=== PATIENT | female | born 1960 | race Caucasian/White ===

== ENCOUNTER → 2016-10-05 07:03 | Outpatient (CLI) | payer MEDICARE, MEDICAID ==
[~2016-10-05 07:03] MED LIST: BAYER CHEWABLE81 MG PO; BENTYL 20 MG TA20 MG PO; BENTYL10 MG PO; CARAFATE1 G PO; CELEBREX200 MG PO; COMBIVENT RESPIM4 GM INH; CYMBALTA60 MG PO; ESTRACE2 MG; ESTRACE2 MG PO; IPRAT-ALBUT 0.5-3 ML UPD; K-DUR20 MEQ PO; KETOPROFEN50 MG PO; KLOR-CON 1010 MEQ PO; LASIX40 MG; LASIX40 MG PO; LORATADINE PO; LUMIGAN 0.03 %2.5 ML EACH EYE; LYRICA150 MG PO; MAXALT MLT10 MG/TAB PO; MORPHINE SULFAT15 M3 PO; NAPROSYN500 MG PO; NEURONTIN800 MG PO; NORVASC10 MG PO; PERCOCET 10/3251 TA1 PO; PHENERGAN25 M1 PO; PRILOSEC20 MG PO; REQUIP4 MG PO; SPIRIVA18 MCG INH; VALIUM10 MG PO; VITAMIN B-12500 MCG PO; VOLTAREN100 GM; VOLTAREN100 GM TOPICAL; ZANAFLEX4 MG PO; ZESTORETIC 20/21 TAB PO; ZOVIRAX 5% CREAM5 GM TP
== END | disposition home or self-care (01) ==
LOC: D.RT 07:03
DX: J44.9 Chronic obstructive pulmonary disease, unspecified (principal)

== ENCOUNTER → 2016-10-21 18:42 | Outpatient (CLI) | payer MEDICARE, MEDICAID | END | disposition home or self-care (01) | LOC: D.MAMMO 08:45 | DX: Z12.31 Encounter for screening mammogram for malignant neoplasm of breast (principal) ==

== ENCOUNTER 2017-05-17 08:58 | Day surgery (SDC) | payer MEDICARE, MEDICAID ==
--- NOTE | 2017-05-17 13:38 | NUR ---
1215-DR COLE HERE TO EVALUATE PATIENT 1230-CONSENT SIGNED 1232-TIMEOUT 1234-PROCEDURE START 1239-PROCEDURE END 1300-DISCHARGED AMBULATORY PER REQUEST
== END 2017-05-17 13:00 | disposition home or self-care (01) ==
LOC: D.OPS 08:58
DX: L90.5 Scar conditions and fibrosis of skin (principal); R10.30 Lower abdominal pain, unspecified

== ENCOUNTER → 2017-05-31 10:24 | Outpatient (CLI) | payer MEDICARE, MEDICAID ==
[2017-05-31 13:14] VITALS: BMI 27.0
--- NOTE | 2017-05-31 14:07 | NUR ---
1355-DISCHARGE INSTRUCTIONS REVIEWED. 1400-D/C HOME AMBULATORY.
== END | disposition home or self-care (01) ==
LOC: D.OPS 10:24
DX: G97.82 Other postprocedural complications and disorders of nervous system (principal); G62.89 Other specified polyneuropathies; Z01.812 Encounter for preprocedural laboratory examination

== ENCOUNTER 2017-06-14 12:34 | Day surgery (SDC) | payer MEDICARE, MEDICAID ==
[~2017-06-14] VITALS: Ht 165.1 cm; Wt 72.7 kg
[2017-06-14 13:04] VITALS: Ht 165.1 cm; Wt 72.7 kg
--- NOTE | 2017-06-14 14:18 | NUR ---
1344 BP 170/90 77 18 98% SAT. TOLERATED PROCEDURE . 1400 PAIN REPORTED 4/10. UP AND AMB WITHOUT ASSISSTANCE. DR. MAZA OFFICE WILL CONTACT PT WITH APPT. PT INFORMED.
--- NOTE | 2017-06-14 14:22 | NUR ---
1412 DC INSTS REVIEWED RELEASED AMB.
== END 2017-06-14 14:17 | disposition home or self-care (01) ==
LOC: D.OPS 12:34
DX: G89.18 Other acute postprocedural pain (principal)

== ENCOUNTER 2017-11-28 20:21 | Emergency (ER) | payer MEDICARE, MEDICAID ==
[2017-06-14 13:04] VITALS: BMI 26.6
[2017-11-28 21:41] LABS: BASOPHILS 0.1 % (0-2); EOSINOPHILS 0.2 % (0-7); HEMATOCRIT 36.9 % (36.0-48.0); IMMATURE GRANULOCYTES 0.1 % (0-5); LYMPHOCYTES 13.7 % (15-50); MCH 27.6 pg (26.0-34.0); MCHC 32.5 g/dL (31.0-37.0); MONOCYTES 9.8 % (2-11); NEUTROPHILS 76.1 % (40-80); RBC 4.34 10x6/uL (4.00-5.40); RDW 12.5 % (11.5-14.5); WBC 8.9 10x3/uL (4.8-10.8)
[2017-11-28 22:01] LABS: ALBUMIN 3.5 g/dL (3.4-5.0); ALKALINE PHOSPHATASE 66 U/L (46-116); ALT (SGPT) 21 U/L (10-68); CALC OSMOLALITY 274 mosm/kg (275-300); CARBON DIOXIDE 24.7 mmol/L (21.0-32.0); CHLORIDE - SERUM 100 mmol/L (98-107); CREATININE - SERUM 1.5 mg/dL (0.6-1.3); GLUCOSE 134 mg/dL (74-106); PROTEIN - SERUM 7.6 g/dL (6.4-8.2); SODIUM 137 mmol/L (136-145); UREA NITROGEN 11 mg/dL (7-18); eGFR NON AFRICAN AMERICAN 38 mL/min (90-120)
[2017-11-28 22:06] LABS: PLATELET COUNT 198 10x3/uL (130-400)
[2017-11-28 22:15] LABS: CKMB 0.7 U/L (0.0-3.6); CREATINE KINASE 94 UL (21-215); TROPONIN-I < 0.017 ng/mL (0.000-0.060)
[2017-11-28 23:52] LABS: APTT 30.1 SECONDS (22.8-39.4)
[2017-11-28 23:56] LABS: INR 0.93 (0.85-1.17); PROTIME 12.1 SECONDS (11.6-15.0)
[2017-11-29 00:12] LABS: APPEARANCE CLEAR (CLEAR); BILIRUBIN NEGATIVE (NEGATIVE); COLOR YELLOW (YELLOW); GLUCOSE NEGATIVE (NEGATIVE); KETONE NEGATIVE (NEGATIVE); NITRITE NEGATIVE (NEGATIVE); PROTEIN NEGATIVE (NEGATIVE); UROBILINOGEN NORMAL (NORMAL)
[2017-11-29 00:13] LABS: BACTERIA MODERATE /hpf (NONE SEEN); EPITHELIAL CELLS 0-5 /hpf (0-5); HYALINE CAST 0-5 /lpf (NONE SEEN); MUCUS >1+ /lpf (NONE SEEN); RED CELLS - URINE 0-5 /hpf (0-5); WHITE CELLS - URINE 0-5 /hpf (0-5)
[2017-11-29 00:16] LABS: UDS - AMPHET NEGATIVE QUAL (NEGATIVE); UDS - BARB NEGATIVE QUAL (NEGATIVE); UDS - BENZO NEGATIVE QUAL (NEGATIVE); UDS - COCAINE NEGATIVE QUAL (NEGATIVE); UDS - OPIATE NEGATIVE QUAL (NEGATIVE); UDS - PCP NEGATIVE QUAL (NEGATIVE); UDS - THC NEGATIVE QUAL (NEGATIVE)
== END 2017-11-29 01:32 | disposition other institution (70) ==
LOC: D.ER 20:21
PROVIDERS: Family Medicine
DX: I63.9 Cerebral infarction, unspecified (principal); R07.89 Other chest pain; J44.9 Chronic obstructive pulmonary disease, unspecified; F17.200 Nicotine dependence, unspecified, uncomplicated

== ENCOUNTER → 2017-12-30 16:41 | Outpatient (CLI) | payer MEDICARE, MEDICAID ==
[2017-06-14 13:04] VITALS: BMI 26.6
[~2017-12-30 16:41] MED LIST changes: +CLEOCIN HCL300 MG PO; +FLUTICASONE PRO16 GM NASAL
== END | disposition home or self-care (01) ==
LOC: D.MAMMO 10:15
DX: Z12.31 Encounter for screening mammogram for malignant neoplasm of breast (principal)

== ENCOUNTER → 2018-01-10 10:25 | Outpatient (CLI) | payer MEDICARE, MEDICAID ==
[2017-06-14 13:04] VITALS: BMI 26.6
== END | disposition home or self-care (01) ==
LOC: D.RT 12-01 09:00
DX: J44.9 Chronic obstructive pulmonary disease, unspecified (principal)

== ENCOUNTER 2018-01-31 13:03 | Emergency (ER) | payer MEDICARE, MEDICAID ==
[~2018-01-31] VITALS: Ht 165.1 cm; Wt 75.5 kg
[~2018-01-31 13:03] MED LIST changes: -CLEOCIN HCL300 MG PO; -FLUTICASONE PRO16 GM NASAL
[2018-01-31 13:14] VITALS: Ht 165.1 cm; Wt 75.5 kg
[2018-01-31 14:02] LABS: BASOPHILS 0.2 % (0-2); EOSINOPHILS 0.5 % (0-7); HEMATOCRIT 39.8 % (36.0-48.0); HEMOGLOBIN 13.2 g/dL (12-16); IMMATURE GRANULOCYTES 0.2 % (0-5); LYMPHOCYTES 16.8 % (15-50); MCHC 33.2 g/dL (31.0-37.0); MCV 84.3 fL (80.0-100.0); MEAN PLATELET VOLUME 9.5 fL (7.4-10.4); NEUTROPHILS 70.3 % (40-80); PLATELET COUNT 166 10x3/uL (130-400); RBC 4.72 10x6/uL (4.00-5.40); RDW 12.7 % (11.5-14.5)
[2018-01-31 14:10] LABS: APTT 27.3 SECONDS (22.8-39.4); INR 1.01 (0.85-1.17); PROTIME 12.9 SECONDS (11.6-15.0)
[2018-01-31 14:38] LABS: ALBUMIN 3.4 g/dL (3.4-5.0); ALKALINE PHOSPHATASE 85 U/L (46-116); ALT (SGPT) 38 U/L (10-68); BILIRUBIN - TOTAL 0.67 mg/dL (0.2-1.3); CALC OSMOLALITY 273 mosm/kg (275-300); CARBON DIOXIDE 27.5 mmol/L (21.0-32.0); CHLORIDE - SERUM 102 mmol/L (98-107); CREATININE - SERUM 0.7 mg/dL (0.6-1.3); GLUCOSE 106 mg/dL (74-106); POTASSIUM - SERUM 3.7 mmol/L (3.5-5.1); PROTEIN - SERUM 7.6 g/dL (6.4-8.2); SODIUM 138 mmol/L (136-145); UREA NITROGEN 8 mg/dL (7-18); eGFR NON AFRICAN AMERICAN > 90 mL/min (90-120)
[2018-01-31 14:43] LABS: CKMB 0.3 U/L (0.0-3.6); CREATINE KINASE 68 UL (21-215); PRO BNP 340 pg/mL (0-125)
[2018-01-31 14:53] LABS: TROPONIN-I < 0.017 ng/mL (0.000-0.060)
[2018-01-31] MEDS ORDERED: FLUTICASONE PRO16 GM NASAL (16:20)
[2018-01-31] MEDS ORDERED: CLEOCIN HCL300 MG PO (16:20)
[2018-01-31 17:05] VITALS: BP 150/80
== END 2018-01-31 17:09 | disposition other institution (70) ==
LOC: D.ER 13:03
PROVIDERS: Family Medicine
DX: J01.90 Acute sinusitis, unspecified (principal); R05 Cough; M54.5 Low back pain; J44.9 Chronic obstructive pulmonary disease, unspecified; J45.909 Unspecified asthma, uncomplicated

== ENCOUNTER → 2018-11-02 09:12 | Outpatient (CLI) | payer MEDICARE, MEDICAID ==
[2018-01-31 13:14] VITALS: BMI 27.6
[~2018-11-02 09:12] MED LIST changes: +CLEOCIN HCL300 MG PO; +FLUTICASONE PRO16 GM NASAL
== END | disposition home or self-care (01) ==
LOC: D.RAD 09:12
PROVIDERS: ATTEND Internal Medicine Pulmonary Disease
DX: J44.9 Chronic obstructive pulmonary disease, unspecified (principal)

== ENCOUNTER → 2019-02-14 07:26 | Outpatient (CLI) | payer MEDICARE, MEDICAID ==
[2018-01-31 13:14] VITALS: BMI 27.6
[2019-02-14 10:36] LABS: BASOPHILS 0.2 % (0-2); EOSINOPHILS 1.4 % (0-7); HEMATOCRIT 38.4 % (36.0-48.0); HEMOGLOBIN 12.8 g/dL (12-16); IMMATURE GRANULOCYTES 0.1 % (0-5); LYMPHOCYTES 37.5 % (15-50); MCH 27.9 pg (26.0-34.0); MCHC 33.3 g/dL (31.0-37.0); MCV 83.8 fL (80.0-100.0); MEAN PLATELET VOLUME 8.9 fL (7.4-10.4); MONOCYTES 10.6 % (2-11); NEUTROPHILS 50.2 % (40-80); RBC 4.58 10x6/uL (4.00-5.40); RDW 13.4 % (11.5-14.5); WBC 8.1 10x3/uL (4.8-10.8)
[2019-02-14 10:43] LABS: PLATELET COUNT 241 10x3/uL (130-400)
[2019-02-14 10:56] LABS: T4 THYROXINE 11.8 ug/dL (4.7-13.3); THYROID STIMULATING HORMONE 1.17 uIU/mL (0.36-3.74)
[2019-02-18 03:06] LABS: IMMUNOGLOBULIN E 15 IU/mL (6-495)
== END | disposition home or self-care (01) ==
LOC: D.RT 10-16 14:00 → D.LAB 11-15 10:00 → D.RT 11-15 10:00 → D.CT 11-15 10:00 → D.LAB 11-15 11:00 → D.CT 11-15 11:10 → D.RT 07:26
PROVIDERS: ATTEND Internal Medicine Pulmonary Disease
DX: R06.00 Dyspnea, unspecified (principal)

== ENCOUNTER 2019-03-01 09:00 | Outpatient (CLI) | payer MEDICARE, MEDICAID ==
[2018-01-31 13:14] VITALS: BMI 27.6
== END 2019-03-01 10:00 | disposition home or self-care (01) ==
LOC: D.MAMMO 09:00
PROVIDERS: ATTEND Family Medicine
DX: Z12.31 Encounter for screening mammogram for malignant neoplasm of breast (principal)

== ENCOUNTER 2019-03-06 10:48 | Outpatient (CLI) | payer MEDICARE, MEDICAID ==
[~2019-03-06] VITALS: Ht 165.1 cm; Wt 72.7 kg
--- NOTE | ~2019-03-06 | HEMODYNAMI ---
PATIENT:GILBERTO BARRERA MEDICAL RECORD: [id number] : 58 LOCATION:[facility] ADMISSION DATE: 03/06/19 Generatedon:03/06/201913:26 Patient name: GILBERTO BARRERA Patient #: [id number] : 1960 Date of study: 03/06/2019 Page: Of Hemodynamic Procedure Report Patient Data Patient Demographics Procedure consent was obtained First Name: GILBERTO Gender: Female Last Name: HOLLY : 1960 Middle Initial: Yahaira Age: 58 year(s) Patient #: [id number] Race: SSN: [id number] Additional ID: [id number] Contact details [address]: [address] [place] [address] State: [place] City: [place] Zip code: [address] Admission Admission Data Admission Date: 03/06/2019 Admission Time: 10:48 Arrival Date: 03/06/2019 Arrival Time: 13:00 Admit Source: Other Insurance Payor: Medicare, Medicaid Height (in.): 64.96 BSA: 1.8 (m2) Height (cm.): 165 BMI: 26.81 (kg/m2) Weight (lbs.): 160.94 Weight (kg.): 73 Lab Results Lab Result Date: 03/06/2019 Lab Result Time: 0:00 Biochemistry Name Units Result Min Max BUN mg/dl 9 --(*---)-- 7 18 Creatinine mg/dl 0.8 --(-*--)-- 0.6 1.3 CBC Name Units Result Min Max Hemoglobin g/dl 12.9 -*(----)-- 13.5 17.5 Procedure Procedure Types Cath Procedure Diagnostic Procedure [facility] w/Coronaries Sedation Charges Moderate Sedation up to 15 minutes Procedure Description Procedure Date Procedure Date: 03/06/2019 Procedure Start Time: 13:08 Procedure End Time: 13:23 Procedure Staff Name Function Antonio La MD Performing Physician Maryan Odonnell RT Monitor Antonia Whiting RT Scrub Dung Szymanski RT Scrub Curtis Naqvi RN Nurse Procedure Data Cath Procedure Fluoroscopy Diagnostic fluoroscopy Total fluoroscopy Time: 2.9 time: 2.9 min min Diagnostic fluoroscopy Total fluoroscopy dose: 417 dose: 417 mGy mGy Contrast Material Contrast Material Type Amount (ml) Isovue 300 91 Entry Location Entry Primary Successful Side Size Upsize Upsize Entry Closure Paredes ccessful Closure Location (Fr) 1 (Fr) 2 (Fr) Remarks Device Remarks Radial Right 6 Fr Mechanical artery Short Compression Estimated blood loss: 5 ml Diagnostic catheters Device Type Used For End Catheter Placement DIAGNOSTIC [place] 110cm 5 Multi-vessel Fr catheter ([id number]) Angiography DIAGNOSTIC AR MOD 5Fr Right Coronary Catheter ([id number]) Angiography Procedure Complications No complications Procedure Medications Medication Administration Route Dosage Oxygen etCO2 Nasal cannula 2 l/min Heparin Flush Bag added to field 2 bags (1000units/500ml NS) 0.9% NaCl I.V. 100 ml/hr Lidocaine 2% added to field 20 Radial Cocktail added to field 1 syringe (Verapamil 2mg/Nitro 400mcg/Heparin 1500units) Fentanyl I.V. 50 mcg Versed I.V. 1 mg Fentanyl I.V. 50 mcg Versed I.V. 1 mg Radial Cocktail I.A. 1 syringe (Verapamil 2mg/Nitro 400mcg/Heparin 1500units) Hemodynamics Rest BSA: 1.8 (m2) HGB: 12.9 (g/dl) O2 Consumption: Estimated: 173.28 (ml/min) O2 Con sumption indexed: Estimated:96.27 (ml/min/m) Heart Rate: 73 (bpm) Pressure Samples Time Site Value (mmHg) Purpose Heart Use Rate(bpm) 13:12 LV 150/10,11 Snapshot 73 13:12 LV 102/20,4 Snapshot 98 13:12 AO 160/106(121) Pullback 77 Gradients Valve Time Site Site 2 Mean SEP/DFP Peak To Heart Use 1 (mmHg) (sec/min) Peak Rate (mmHg) (bpm) Aortic 13:12 LV AO 77 160/106(121) Snapshots Pre Cath Intra NCS Post Cath Vital Signs Time Heart Resp SPO2 etCO2 NIBP (mmHg) Rhythm Pain Sedation Rate (ipm) (%) (mmHg) Status Level (bpm) 12:54:23 71 17 100 19.4 166/88(120) NSR 0 (11) 10(A) , No pain 12:58:23 54 16 100 33.7 168/97(117) NSR 0 (11) 10(A) , No pain 13:02:24 54 17 100 0 162/94(111) NSR 0 (11) 10(A) , No pain 13:06:32 54 17 94 0 127/82(99) NSR 0 (11) 10(A) , No pain 13:11:11 64 16 94 29.2 152/85(130) NSR 0 (11) 9(A) , No pain 13:15:13 72 16 97 32.9 112/80(102) NSR 0 (11) 9(A) , No pain 13:19:08 75 16 96 26.9 120/84(109) NSR 0 (11) 9(A) , No pain 13:22:04 69 17 97 36.7 128/74(94) NSR 0 (11) 9(A) , No pain Medications Time Medication Route Dose Verified Delivered Reason Notes Effectiveness by by 12:54:48 Oxygen etCO2 2 l/min Antonio Acevedo Per Nasal St Rudy Naqvi RN physician cannula 12:54:56 Heparin Flush added 2 bags Antonio Acevedo used for Bag to St Rudy Naqvi RN procedure (1000units/500ml field GERMAN NS) 12:55:16 0.9% NaCl I.V. 100 Antonio Acevedo Per ml/hr St Rudy Naqvi RN physician 12:55:26 Lidocaine 2% added 20ml Antonio Acevedo for local to vial St Rudy Naqvi RN anesthetic field GERMAN 12:55:37 Radial Cocktail added 1 Antonio Acevedo used for (Verapamil to syringe St Rudy Naqvi air brush artist 2mg/Nitro field GERMAN 400mcg/Heparin 1500units) 13:01:45 Fentanyl I.V. 50 mcg Antonio Acevedo for sedation St Rudy Naqvi RN, MD 13:01:51 Versed I.V. 1 mg Antonio Acevedo for sedation St Rudy Naqvi RN, MD 13:06:56 Fentanyl I.V. 50 mcg Antonio Acevedo for sedation St Rudy Naqvi RN, MD 13:06:58 Versed I.V. 1 mg Antonio Acevedo for sedation St Rudy Naqvi RN, MD 13:10:30 Radial Cocktail I.A. 1 Antonio rocha (Verapamil syringe Abhinav Abhinav vasodilation 2mg/Nitro MD GERMAN 400mcg/Heparin 1500units) Procedure Log Time Note 12:41:12 Diagnostic Cath Status : Elective 12:42:09 ACC Patient presents with Non-STEMI CCS Anginal Class 3--Marked limitation of physical activity, angina occurs with ordinary activity.. 12:42:17 ACCPatient has been prescribed/administered the following anti-anginal medication within the last 2 weeks: None 12:42:22 Procedure Status Elective Heart Cath (OP). 12:42:25 Curtis Naqvi RN sent for patient. Start room use. 12:42:26 Time tracking: Regular hours (M-F 7:00 - 5:00) 12:42:31 Plan of Care:Hemodynamics will remain stable., Cardiac rhythm will remain stable., Comfort level will be maintained., Respiratory function will remain adequate., Patient/ family verbilizes understanding of procedure., Procedure tolerated without complication., Recovers from procedure without complications.. 12:43:46 Informed consent obtained and on chart 12:45:58 Patient Height : 64.96 inches 12:46:04 Patient Weight : 160.94 lbs 12:46:20 Arrival Date: 03/06/2019 1:00:00 PM 12:46:26 Insurance Payor : Medicare, Medicaid 12:46:54 Admit Source: Other 12:47:36 Lab Result : Creatinine 0.8 mg/dl 12:47:36 Lab Result : BUN 9 mg/dl 12:47:36 Lab Result : Hemoglobin 12.9 g/dl 12:47:51 2) 60-89 Mildly reduced kidney function, and other findings (as for stage 1) point to kidney disease. 12:48:15 Maximum allowable contrast dose (3.7 X eGFR X 0.75)216 ml. 12:48:33 Patient received from Pre/Post Procedure Room to [facility] 2 Alert and oriented. Tansferred to table in Supine position. 12:53:30 ECG and BP/O2 sat monitors applied to patient. 12:53:34 Vital chart was started 12:54:48 Oxygen 2 l/min etCO2 Nasal cannula was administered by Curtis Naqvi RN; Per physician; 12:54:56 Heparin Flush Bag (1000units/500ml NS) 2 bags added to field was administered by Curtis Naqvi RN; used for procedure; 12:55:16 0.9% NaCl 100 ml/hr I.V. was administered by Curtis Naqvi RN; Per physician; 12:55:26 Lidocaine 2% 20ml vial added to field was administered by Curtis Naqvi RN; for local anesthetic; 12:55:37 Radial Cocktail (Verapamil 2mg/Nitro 400mcg/Heparin 1500units) 1 syringe added to field was administered by Curtis Naqvi RN; used for procedure; 12:55:42 Warm blankets applied, and brian hugger turned on for patient comfort. 12:55:42 Correct patient and procedure confirmed by team. 12:56:11 Rhythm: sinus bradycardia 12:56:12 Full Disclosure recording started 12:56:27 H&P Date Dictated: 02/20/2019 Within 30 days and on chart., H&P Addendum completed by physician on day of procedure. (MUST COMPLETE FOR ALL OUTPATIENTS). 12:56:28 Pre-procedure instructions explained to patient. 12:56:28 Pre-op teaching completed and patient verbalized understanding. 12:56:31 Family in patients room. 12:56:32 Patient NPO since Midnight. 12:56:34 Is the patient allergic to Iodine/contrast media? No. 12:56:36 Is patient on blood thinner?No 12:56:52 ACC The patient was administered the following blood thiners within the last 24 hours: None 12:56:53 Patient diabetic? No. 12:57:06 Previous problem with sedation/anesthesia? No ? 12:57:08 Snore? Yes 12:57:09 Sleep apnea? No 12:57:10 Deviated septum? No 12:57:11 Opens mouth fully? Yes 12:57:11 Sticks out tongue? Yes 12:57:24 Airway obstruction? Yes COPD, Asthma 12:57:30 Dentures? No ? 12:57:35 Pre procedure: right dorsailis pedis pulse 1+ Palpable, but thready & weak; easily obliterated 12:57:37 Modified Ubaldo's test Ulnar < 7 seconds 12:57:39 Patient pain scale 0/10 ?. 12:57:44 IV patent on arrival in left forearm with 0.9% NaCl at [facility]. 12:57:46 Lab results completed and on chart. 12:57:51 Right Radial & Right Groin area was prepped with chlora-prep and draped in sterile fashion 12:57:53 Alarms reviewed by R. N. 12:57:53 Sharps counted by scrub and verified by R.N. 12:58:48 --------ALL STOP TIME OUT------ 12:58:48 Final Timeout: patient, procedure, and site verified with staff and physician. All members of the team are in agreement. 12:58:50 Right Radial & Right Groin site verified by team. 12:58:53 Fire Safety Assessment: A--An alcohol-based skin anteseptic being used preoperatively., C--Open oxygen or nitrous oxide is being used., D--An ESU, laser, or fiber-optic light is being used. 12:59:01 Physical assessment completed. ASA score P 2 - A patient with mild systemic disease as per Antonio La MD. 12:59:05 Sedation plan: IV Moderate Sedation Medication:Versed, Fentanyl 13:01:45 Fentanyl 50 mcg I.V. was administered by Curtis Naqvi RN; for sedation; 13:01:51 Versed 1 mg I.V. was administered by Curtis Naqvi RN; for sedation; 13:06:56 Fentanyl 50 mcg I.V. was administered by Curtis Naqvi RN; for sedation; 13:06:58 Versed 1 mg I.V. was administered by Curtis Naqvi RN; for sedation; 13:08:31 Procedure started. 13:08:33 Use device set Radial Dx or PCI 13:08:34 ACIST Syringe (75368) opened to sterile field. 13:08:34 Medline Cath Pack ([id number]) opened to sterile field. 13:08:35 Bag Decanter () opened to sterile field. 13:08:35 ACIST Hand Control (53762) opened to sterile field. 13:08:36 ACIST Manifold (28610) opened to sterile field. 13:08:36 Tegaderm 4 x 4 (1626W) opened to sterile field. 13:08:37 MBrace Wrist Support ([id number]) opened to sterile field. 13:08:38 SHEATH 6FR RAIN (6184343) opened to sterile field. 13:08:38 EMERALD Guide Wire (379-740) opened to sterile field. 13:08:45 Local anesthetic to right radial artery with Lidocaine 2% by Antonio La MD.INITIAL ACCESS ONLY 13:10:30 Radial Cocktail (Verapamil 2mg/Nitro 400mcg/Heparin 1500units) 1 syringe I.A. was administered by Antonio La MD; for vasodilation; 13:10:38 A 6 Fr Short sheath was inserted into the Right Radial artery 13:11:54 A DIAGNOSTIC [place] 110cm 5 Fr catheter (205702) was advanced over the wire and used for Multi-vessel Angiography. 13:12:21 LV hemodynamics recorded. 13:12:22 LV gram done using HENSON 13:12:25 Injector settings: Ml/sec: 5, Volume: 15, 13:12:43 EF : 55 % 13:14:06 LCA angiography performed. 13:14:12 Injector settings: Ml/sec: 3, Volume: 6, 13:15:32 Catheter removed. 13:15:50 A DIAGNOSTIC AR MOD 5Fr Catheter ([id number]) was advanced over the wire and used for Right Coronary Angiography. 13:16:09 Catheter removed. 13:17:38 RCA angiography performed. 13:17:41 Injector settings: Ml/sec: 3, Volume: 6, 13:17:46 Catheter removed. 13:17:57 TR BAND Standard ([id number]) opened to sterile field. 13:19:26 Sheath removed intact; hemostasis achieved with Mechanical Compression to the Right Radial artery. 13:19:27 Procedure ended.(Physican Out) 13:19:40 Fluoroscopy time 02.90 minutes. 13:19:43 Fluoroscopy dose: 417 mGy 13:19:43 Flurop Dose total: 417 13:20:14 Dose Area Product 13357 mGy/cm. 13:20:44 Contrast amount:Isovue 300 91ml. 13:20:47 Sharps counted by scrub and verified by R.N. 13:20:49 Insertion/operative site no bleeding no hematoma. 13:20:55 Post right radial artery:stable 13:20:56 Post Procedure Pulses reassessed and unchanged 13:20:59 Post procedure rhythm: unchanged. 13:21:02 Estimated blood loss: 5 ml 13:21:05 Post procedure instruction explained to patient.Patient verbalizes understanding. 13:21:05 Patient needs reinforcement of post procedure teaching. 13:21:21 Procedure type changed to Cath procedure, Diagnostic procedure, LHC, LHC w/Coronaries, Sedation Charges, Moderate Sedation up to 15 minutes 13:21:23 Procedure and supply charges have been captured, reviewed, submitted and are correct. 13:21:29 Procedure Complication : No complications 13:21:31 Vital chart was stopped 13:21:32 See physician's report for complete and final results. 13:22:57 Report given to Pre/Post Procedure Room. 13:23:00 Patient transfered to Pre/Post Procedure Room with Stretcher. 13:23:02 Procedure ended. 13:23:02 Full Disclosure recording stopped 13:23:06 End room use (Document Last) Device Usage Item Name Manufacture Quantity Catalog Hospital Part Current Minima l Lot# / Number Charge Number Stock Stock Serial# Code ACIST Acist 1 29671 009923 117709 502761 20 Syringe Medical (83934) Systems Inc Medline Medline 1 [id number] 048840 31162 825488 5 Cath Pack ([id number]) Bag Microtek 1 2001S 119369 81896 891226 5 Decanter Medical Inc. () ACIST Hand Acist 1 59258 420240 353878 622435 5 Control Medical (46138) Systems Inc ACIST Acist 1 22701 460502 907690 235853 5 Manifold Medical (33162) Systems Inc Tegaderm 4 3M 1 1626W 204322 122749 579258 5 x 4 (1626W) MBrace Advanced 1 140-0250-00 666323 27705 787177 5 Wrist Vascular Support Dynamics ([id number]) SHEATH 6FR Cardinal 1 3888040 810182 7102216 743509 5 [facility] (4679019) EMERALD Cardinal 1 502-455 556766 312771 488306 5 Guide Wire Health (502455) DIAGNOSTIC Terumo 1 40-0293 789682 955361 360315 5 [place] 110cm 5 Fr catheter (401549) DIAGNOSTIC Cardinal 1 [id number] 722227 674905 794434 15 AR MOD 5Fr Health Catheter (685464F) TR BAND Terumo 1 [id number] 802734 355345 885200 40 Standard ([id number]) Signature Audit [place] Stage Time Signature Unsigned Intra-Procedure 03/06/2019 Maryan Blas 1:26:28 PM RT(R) Signatures Performing Physician : Signature : Antonio La MD Date : Time : Monitor : Maryan Odonnell RT Signature : Date : Time : Nurse : Curtis Naqvi RN Signature : Date : Time : [facility] [address] [facility] [place] [address]
[2019-03-06] MEDS ORDERED: BENICAR HCT 401 EAC1 PO (11:05)
[2019-03-06] MEDS ORDERED: CATAPRES0.1 MG PO (11:06)
[2019-03-06] MEDS ORDERED: BAYER CHEWABLE81 MG PO (11:07)
[2019-03-06] MEDS ORDERED: ATIVAN1 MG PO (11:08)
[2019-03-06] MEDS ORDERED: PERCOCET 10-321 EAC1 PO (11:09)
[2019-03-06] MEDS ORDERED: IBUPROFEN800 MG PO (11:10)
[2019-03-06] MEDS ORDERED: AMBIEN10 MG PO (11:10)
[2019-03-06] MEDS ORDERED: CALCIPOTRIENE120 GM TOPICAL (11:11)
[2019-03-06] MEDS ORDERED: LEVSIN/ANASP0.125 MG PO (11:13)
[2019-03-06] MEDS ORDERED: DETROL LA4 MG PO (11:14)
[2019-03-06] MEDS ORDERED: VITAMIN C500 M1 PO (11:14)
[2019-03-06] MEDS ORDERED: CALCIUM 600 +1 EAC3 PO (11:15)
[2019-03-06] MEDS ORDERED: WESTCORT 0.2% O15 GM TOPICAL (11:15)
[2019-03-06] MEDS ORDERED: IPRAT-ALBUT 0.5-3 ML UPD (11:16)
[2019-03-06] MEDS ORDERED: ALENDRONAT70 MG/75 M PO (11:17)
[2019-03-06] MEDS ORDERED: BENADRYL25 MG PO (11:20)
[2019-03-06] MEDS ORDERED: ZOVIRAX200 MG PO (11:22)
[2019-03-06] MEDS ORDERED: ADVAIR 250/501 DISK INH (11:23)
[2019-03-06 11:24] VITALS: BP 143/82; Ht 165.1 cm; Wt 72.7 kg
[2019-03-06] MEDS ORDERED: CBD OIL PO (11:27)
[2019-03-06 11:31] LABS: HEMATOCRIT 39.2 % (36.0-48.0); HEMOGLOBIN 12.9 g/dL (12-16); LYMPHOCYTES 27.2 % (15-50); MCH 27.5 pg (26.0-34.0); MCHC 32.9 g/dL (31.0-37.0); MCV 83.6 fL (80.0-100.0); MEAN PLATELET VOLUME 8.8 fL (7.4-10.4); NEUTROPHILS 63.7 % (40-80); PLATELET COUNT 241 10x3/uL (130-400); RBC 4.69 10x6/uL (4.00-5.40); RDW 12.6 % (11.5-14.5); WBC 7.6 10x3/uL (4.8-10.8)
[2019-03-06 11:38] LABS: CALC OSMOLALITY 272 mosm/kg (275-300); CALCIUM 9.1 mg/dL (8.5-10.1); CARBON DIOXIDE 28.3 mmol/L (21.0-32.0); CHLORIDE - SERUM 103 mmol/L (98-107); CREATININE - SERUM 0.8 mg/dL (0.6-1.3); GLUCOSE 106 mg/dL (74-106); POTASSIUM - SERUM 3.5 mmol/L (3.5-5.1); SODIUM 137 mmol/L (136-145); UREA NITROGEN 9 mg/dL (7-18); eGFR NON AFRICAN AMERICAN 78 mL/min (90-120)
[2019-03-06 11:58] LABS: CHOL - HDL RATIO 3.5 ratio (2.3-4.1); LDL-HDL RATIO 2.2 ratio (1.5-3.5)
--- NOTE | 2019-03-06 13:51 | NUR ---
TR BAND CDI,FINGERS WARM AND CAP REFILL IS BRISK. NSR, DENIES ANY C/O CHEST PAIN. RESP WITH EASE ON O2 AT 2LPM VIA NC. NSR, DENIES ANY C/O CHEST PAIN. NO FAMILY AT BEDSIDE, CALL LIGHT IN REACH.
--- NOTE | 2019-03-06 14:14 | NUR ---
PT SLEEPING, AWAKENS EASILY, DENIES ANY C/O. TR BAND IS CDI, FINGERS WARM AND CAP REFILL IS BRISK. VSS, CALL LIGHT IN REACH.
--- NOTE | 2019-03-06 14:27 | NUR ---
TR BAND CDI, FINGERS WARM AND CAP REFILL IS BRISK. VSS. CALL LIGHT IN REACH.
--- NOTE | 2019-03-06 14:36 | NUR ---
3 CC OF AIR WEANED FROM TR BAND WITH NO BLEEDING NOTED. FINGERS WARM AND CAP REFILL IS BRISK. PT DENIES ANY C/O.
--- NOTE | 2019-03-06 14:47 | NUR ---
3 CCOF AIR WEANED FROM TR BAND WITH NO BLEEDING NOTED. FIGNERS WARM AND CAP REFILL IS BRISK. SANDWICH AND PO FLUIDS SERVED. PT DENIES ANY C/O AT THIS TIME. CALL LIGHT IN REACH,NO FAMILY AT BEDSIDE.
--- NOTE | 2019-03-06 15:03 | NUR ---
3 CCOF AIR WEANED FROM BAND WITH NO BLEEDING NOTED. PT CONNIE SANDWICH WITH NO C/O NAUSEA. VSS
--- NOTE | 2019-03-06 15:44 | NUR ---
1515 TR BAND REMOVED AND 2X2, TEGADERM PLACED TO SITE. FINGERS WARM, CAP REFILL IS BRISK, PULSES PALPABLE. PT IS ALERT AND DENIES ANY C/O. CONNIE SANDWICH WITH NO C/O NAUSEA. IV DC'D WITH CATH INTACT AND DC INSTRUCTIONS REVIEWED WITH PT WHO VERBALIZES UNDERSTANDING. 1540 PT HAS DRESSED FOR DC WITH ASSIST. DRESSING REMAINS CDI TO RIGHT WRIST, NO BLEEDING AT SITE. RADIAL PULSE PALPABLE. PT DENIES ANY N/V DEFICIT TO HAND. WRIST IMMOBILIZER IN PLACE. PT ESCORTED TO PRIVATE AUTO VIA WC BY NURSE WITH DAUGHTER DRIVING HER HOME. PT HAS ALL PERSONAL BELONGINGS AND DC INSTRUCTIONS AT TIME OF DISCHARGE.
--- NOTE | 2019-03-08 13:11 | OP ---
PATIENT NAME: GILBERTO BARRERA MEDICAL RECORD: [id number] :58 LOCATION:D.CAT ADMISSION DATE: SURGEON: MARLENE LUI MD DATE OF OPERATION: 03/06/2019 PROCEDURE: Left heart catheterization, selective coronary angiography, right radial approach. CATHETERS: A 5-Israeli sheath, 5/4 left and right Farnaz, 5/4 pig. The procedure was well tolerated. The patient was returned to the griggs. Sheath removed. TR band was placed. FINDINGS: Left ventriculography in 30-degree HENSON view; normal wall motion and normal systolic function. CORONARY ANATOMY: LEFT MAIN: Left main is free of disease. LAD: LAD has luminal irregularities, otherwise free of disease. CIRCUMFLEX: Free of disease. RIGHT CORONARY: Large, dominant right artery, free of disease. IMPRESSION: Minimal atherosclerotic plaquing. Suspect all symptomatology is secondary to lung issues. TRANSINT:[id number] Voice Confirmation ID: [id number] DOCUMENT ID: [id number] MARLENE LUI MD at 1311 CC: [id number] DICTATION DATE: 03/06/19 1327 CHANNELING MACHINE OPERATOR: 03/06/19 1418 DEP CLI 03/06/19 [facility] [address] [place] [address]
== END 2019-03-06 15:40 | disposition home or self-care (01) ==
LOC: D.CATH 10:48
PROVIDERS: ATTEND Internal Medicine Interventional Cardiology
DX: I25.110 Atherosclerotic heart disease of native coronary artery with unstable angina pectoris (principal)

== ENCOUNTER → 2019-03-29 09:17 | Outpatient (CLI) | payer MEDICARE, MEDICAID ==
[2019-03-06 11:24] VITALS: BMI 26.6
[~2019-03-29 09:17] MED LIST changes: +ADVAIR 250/501 DISK INH; +ALENDRONAT70 MG/75 M PO; +AMBIEN10 MG PO; +ATIVAN1 MG PO; +BENADRYL25 MG PO; +BENICAR HCT 401 EAC1 PO; +CALCIPOTRIENE120 GM TOPICAL; +CALCIUM 600 +1 EAC3 PO; +CATAPRES0.1 MG PO; +CBD OIL PO; +DETROL LA4 MG PO; +IBUPROFEN800 MG PO; +LEVSIN/ANASP0.125 MG PO; +PERCOCET 10-321 EAC1 PO; +VITAMIN C500 M1 PO; +WESTCORT 0.2% O15 GM TOPICAL; +ZOVIRAX200 MG PO
--- NOTE | 2019-04-03 14:28 | EC ---
PATIENT:GILBERTO BARRERA DATE OF SERVICE: 03/29/19 SEX: F MEDICAL RECORD: [id number] DATE OF : 58 [facility] AGE OF PATIENT: 58 ADMISSION DATE: 03/29/19 REFERRING PHYSICIAN: INTERPRETING PHYSICIAN: MARLENE LUI MD ECHOCARDIOGRAM REPORT ECHO CHARGES 4 ECHO COMPLETE Date: 03/29/19 CLINICAL DIAGNOSIS: HTN/ MITRAL / TRICUSPID REGURG ECHOCARDIOGRAPHIC MEASUREMENTS (adult normal given) AC root (d.<3.7cm) 2.9 cm LV Septum d (<1.2 cm> 1.3 cm Valve Excursion 1.6 cm LV Septum (systole) 1.6 cm Left Atria (s.<4.0cm> 4. cm LVPW d(<1.2cm) 11.5 cm RV (d.<2.3cm) 4.1 cm LVPW (sytole) 1.7 cm LV diastole(<5.6CM) 4.7 cm MV E-F(>70mm/sec) cm LV systole 2.5 cm LVOT Diameter 2.0 cm MV exc.(>10mm) cm Est.ejection fraction (50-75%) % DOPPLER: LVIT cm/sec A 70.0 cm/sec E 61.0 cm/sec LA cm/sec RVSP 34 mmHg LVOT 90 cm/sec AOP1/2T m/s Asc. Ao 110 cm/sec RVOT 74 cm/sec RA cm/sec PA 105 cm/sec AV Gradient Peak 4.80 mmHg AV Mean 2.36 mmHg AV Area 2.7 cm MV Gradient Peak 4.42 mmHg MV Mean 1.40 mmHg MV Area cm COMMENTS: Journeyman Pipe Welder: Trev AZAR Blocker Automatic: 3 Dr. Pastrana TAPE# PACS Pericardial Effusion N DATE OF SERVICE: 03/29/2019 Adequate 2-D echo, color-flow and spectral Doppler, and M-mode. LVH is present. LV internal dimension is normal. Wall motion is normal. EF is greater than or equal to 55%. Aortic valve is tricuspid. No evidence of stenosis by Doppler interrogation. Left atrium is mildly dilated at 4.1 cm. Mitral valve shows no prolapse. Trace MR. Right-sided chambers are grossly normal. Mild TR. ECHOCARDIOGRAM REPORT [id number] GILBERTO BARRERA TRANSINT:[id number] Voice Confirmation ID: [id number] DOCUMENT ID: [id number] MARLENE LUI MD at 1428 CC: [id number] DICTATION DATE: 03/29/19 145 HAZARDOUS WASTE MANAGEMENT SPECIALIST: 03/29/19 1643 DEP CLI 03/29/19 [place] [id number] [place] [id number]
== END | disposition home or self-care (01) ==
LOC: D.HCCARDIO 09:17
PROVIDERS: ATTEND Internal Medicine Interventional Cardiology
DX: I10 Essential (primary) hypertension (principal)

== ENCOUNTER 2019-04-18 15:19 | Emergency (ER) | payer MEDICARE, MEDICAID ==
[~2019-04-18] VITALS: Ht 165.1 cm; Wt 72.7 kg
[2019-04-18 15:36] VITALS: Ht 165.1 cm; Wt 72.7 kg
[2019-04-18 16:24] LABS: BASOPHILS 0.1 % (0-2); HEMATOCRIT 37.7 % (36.0-48.0); HEMOGLOBIN 12.6 g/dL (12-16); IMMATURE GRANULOCYTES 0.3 % (0-5); LYMPHOCYTES 33.9 % (15-50); MCH 27.4 pg (26.0-34.0); MCHC 33.4 g/dL (31.0-37.0); MEAN PLATELET VOLUME 8.9 fL (7.4-10.4); NEUTROPHILS 52.7 % (40-80); PLATELET COUNT 256 10x3/uL (130-400); RDW 13.3 % (11.5-14.5); WBC 7.9 10x3/uL (4.8-10.8)
[2019-04-18 16:42] LABS: APTT 29.5 SECONDS (22.8-39.4); INR 0.87 (0.85-1.17); PROTIME 11.4 SECONDS (11.6-15.0)
[2019-04-18 16:46] LABS: ALBUMIN 3.9 g/dL (3.4-5.0); ALKALINE PHOSPHATASE 72 U/L (46-116); ALT (SGPT) 21 U/L (10-68); BILIRUBIN - TOTAL 0.36 mg/dL (0.2-1.3); CALC OSMOLALITY 273 mosm/kg (275-300); CALCIUM 9.1 mg/dL (8.5-10.1); CHLORIDE - SERUM 100 mmol/L (98-107); CREATININE - SERUM 1.5 mg/dL (0.6-1.3); GLUCOSE 101 mg/dL (74-106); POTASSIUM - SERUM 3.5 mmol/L (3.5-5.1); SODIUM 136 mmol/L (136-145); UREA NITROGEN 19 mg/dL (7-18); eGFR NON AFRICAN AMERICAN 38 mL/min (90-120)
[2019-04-18 16:57] LABS: CKMB 2.5 U/L (0.0-3.6); CREATINE KINASE 155 UL (21-215); TROPONIN-I < 0.017 ng/mL (0.000-0.060)
[2019-04-18 21:44] VITALS: BP 149/79
== END 2019-04-18 21:36 | disposition home or self-care (01) ==
LOC: D.ER 15:19
PROVIDERS: Emergency Medicine
DX: R07.89 Other chest pain (principal); I10 Essential (primary) hypertension; K21.9 Gastro-esophageal reflux disease without esophagitis

== ENCOUNTER 2019-05-31 19:02 | Observation (INO) | payer MEDICARE, MEDICAID ==
[~2019-05-31] VITALS: Ht 165.1 cm; Wt 86.1 kg
--- NOTE | 2019-05-31 19:30 | NUR ---
PATIENT IN WITH PAIN AND BRUISING TO HER RIGHT FOOT, ANKLE, CALF AND THE BACK OF RIGHT KNEE. STATES HER KNEE GAVE OUT ON HER THIS MORNNG AND SHE FELL, DENIES LOC. WAS BABYSITTING AT THE TIME AND HAD TO WAIT FOR A RIDE TO COME IN.
[2019-05-31] MEDS ORDERED: DICLOFENAC SODI50 MG PO (20:33)
[2019-05-31] MEDS ORDERED: CYCLOBENZAPRINE5 MG PO (20:33)
[2019-05-31] MEDS ORDERED: NORVASC5 MG PO (21:00)
--- NOTE | 2019-05-31 21:32 | NUR ---
PT C/O CHEST PAIN AND SOB. PT FACE APPEARS FLUSHED. EDP AT BEDSIDE. EKG OBTAINED.
[2019-05-31 21:37] VITALS: BP 219/133
[2019-05-31 21:57] VITALS: BP 174/102
[2019-05-31 22:05] VITALS: BP 174/98
[2019-05-31 22:20] VITALS: BP 129/78
--- NOTE | 2019-05-31 22:22 | NUR ---
STATES HE CHEST PAIN IS DOWN TO A 7/10 ON PAIN SCALE. PT TO BE ADMITTED.
[2019-05-31 22:23] LABS: CKMB 1.7 U/L (0.0-3.6); CREATINE KINASE 150 UL (21-215); TROPONIN-I 0.031 ng/mL (0.000-0.060)
[2019-05-31 23:17] VITALS: BP 131/79
[2019-05-31 23:17] LABS: BASOPHILS 0.1 % (0-2); EOSINOPHILS 1.6 % (0-7); HEMATOCRIT 41.5 % (36.0-48.0); HEMOGLOBIN 13.1 g/dL (12-16); IMMATURE GRANULOCYTES 0.2 % (0-5); LYMPHOCYTES 29.7 % (15-50); MCH 27.3 pg (26.0-34.0); MCHC 31.6 g/dL (31.0-37.0); MCV 86.5 fL (80.0-100.0); MEAN PLATELET VOLUME 9.8 fL (7.4-10.4); MONOCYTES 9.9 % (2-11); NEUTROPHILS 58.5 % (40-80); PLATELET COUNT 283 10x3/uL (130-400); RDW 13.8 % (11.5-14.5); WBC 11.1 10x3/uL (4.8-10.8)
[2019-05-31 23:30] LABS: CALC OSMOLALITY 287 mosm/kg (275-300); CALCIUM 9.1 mg/dL (8.5-10.1); CARBON DIOXIDE 26.3 mmol/L (21.0-32.0); CHLORIDE - SERUM 106 mmol/L (98-107); CREATININE - SERUM 0.8 mg/dL (0.6-1.3); GLUCOSE 108 mg/dL (74-106); POTASSIUM - SERUM 3.7 mmol/L (3.5-5.1); SODIUM 145 mmol/L (136-145); UREA NITROGEN 8 mg/dL (7-18); eGFR NON AFRICAN AMERICAN 78 mL/min (90-120)
[2019-05-31 23:36] LABS: ALBUMIN 3.9 g/dL (3.4-5.0); ALKALINE PHOSPHATASE 67 U/L (46-116); ALT (SGPT) 32 U/L (10-68); BILIRUBIN - TOTAL 0.42 mg/dL (0.2-1.3); PROTEIN - SERUM 8.2 g/dL (6.4-8.2)
[2019-06-01] MEDS ORDERED: BUSPAR 15 MG TA15 MG PO (00:40)
[2019-06-01] MEDS ORDERED: TORADOL10 MG PO (00:41)
[2019-06-01] MEDS ORDERED: ROBAXIN500 MG PO (00:42)
--- NOTE | 2019-06-01 01:15 | NUR ---
PT ARRIVED TO FLOOR VIA STRECHER FROM ER. PT ALERT AND ORIENTED 2L NC 98%. PT RIGHT ANKLE WRAPPED IN KEISHA BANDAGE ELEVATED WITH ICE. TELEMETRY PLACED ON PT PT RUNNING 75 SINUS RYTHEM. MED REC COMPLEATED. PT DENIES ANY FURTHER NEEDS AT THIS TIME. BED LOW CALL LIGHT WITHIN REACH. WILL CONTINUE TO MONITOR.
[2019-06-01 03:37] VITALS: BP 145/86; Ht 165.1 cm; Wt 86.1 kg
[2019-06-01 04:00] VITALS: BP 134/73
[2019-06-01 04:02] LABS: BASOPHILS 0.1 % (0-2); EOSINOPHILS 1.4 % (0-7); HEMATOCRIT 37.1 % (36.0-48.0); HEMOGLOBIN 11.4 g/dL (12-16); IMMATURE GRANULOCYTES 0.3 % (0-5); LYMPHOCYTES 25.9 % (15-50); MCH 26.6 pg (26.0-34.0); MCHC 30.7 g/dL (31.0-37.0); MCV 86.7 fL (80.0-100.0); MEAN PLATELET VOLUME 8.9 fL (7.4-10.4); MONOCYTES 12.3 % (2-11); PLATELET COUNT 227 10x3/uL (130-400); RBC 4.28 10x6/uL (4.00-5.40)
[2019-06-01 04:10] LABS: WBC 7.1 10x3/uL (4.8-10.8)
[2019-06-01 04:14] LABS: APTT 28.3 SECONDS (22.8-39.4); INR 0.92 (0.85-1.17); PROTIME 11.9 SECONDS (11.6-15.0)
[2019-06-01 04:34] LABS: CALC OSMOLALITY 282 mosm/kg (275-300); CALCIUM 8.5 mg/dL (8.5-10.1); CHLORIDE - SERUM 105 mmol/L (98-107); CKMB 0.8 U/L (0.0-3.6); CREATINE KINASE 92 UL (21-215); CREATININE - SERUM 0.8 mg/dL (0.6-1.3); GLUCOSE 114 mg/dL (74-106); PHOSPHOROUS 4.1 mg/dL (2.5-4.9); POTASSIUM - SERUM 3.8 mmol/L (3.5-5.1); PRO BNP 287 pg/mL (0-125); SODIUM 142 mmol/L (136-145); UREA NITROGEN 9 mg/dL (7-18); eGFR NON AFRICAN AMERICAN 78 mL/min (90-120)
[2019-06-01 04:40] LABS: TROPONIN-I < 0.017 ng/mL (0.000-0.060)
[2019-06-01 09:59] VITALS: BP 159/99
[2019-06-01 10:42] LABS: CKMB 0.5 U/L (0.0-3.6); CREATINE KINASE 82 UL (21-215); TROPONIN-I < 0.017 ng/mL (0.000-0.060)
[2019-06-01 13:28] VITALS: BP 142/82
--- NOTE | 2019-06-01 14:20 | NUR ---
PT LYING IN BED. EYES CLOSED CHEST RISING AND FALLING. BED LOW. CL IN REACH.
--- NOTE | 2019-06-01 15:54 | NUR ---
I have reviewed this patient and I concur with the Shift Assessment completed by the Licensed Practical Nurse today this shift.
[2019-06-01 16:32] LABS: CKMB 0.7 U/L (0.0-3.6); CREATINE KINASE 83 UL (21-215)
[2019-06-01 16:33] LABS: TROPONIN-I < 0.017 ng/mL (0.000-0.060)
[2019-06-01 17:32] VITALS: BP 140/73
--- NOTE | 2019-06-01 19:10 | NUR ---
BEDSIDE REPORT RECEIVED FROM DAY SHIFT, PT CARE ASSUMED. INTRODUCED SELF AND WROTE NAME ON BOARD. PT LYING IN BED WITH EYES CLOSED, RR EVEN AND NONLABORED, NO S/S OF DISTRESS, AROUSES EASILY TO VOICE. AAOX4. DENIES ANY NEEDS AT THIS TIME. BED IN LOWEST POSITION, SR X2, CALL LIGHT WITHIN REACH. WILL CONTINUE TO MONITOR.
[2019-06-01 20:00] VITALS: BP 143/86
--- NOTE | 2019-06-01 20:18 | NUR ---
RT TO ROOM.
--- NOTE | 2019-06-01 21:57 | NUR ---
PT LYING IN BED WATCHING TV, A&A. NIGHT TIME MEDS ADMINISTERED, PER ORDER. PT DENIES ANY OTHER NEEDS AT THIS TIME. BED IN LOWEST POSITION, SR X1, CALL LIGHT WITHIN REACH. WILL CONTINUE TO MONITOR.
[2019-06-02] VITALS: BP 146/85
[2019-06-02 04:00] VITALS: BP 146/82
[2019-06-02 04:47] LABS: BASOPHILS 0.1 % (0-2); EOSINOPHILS 0.6 % (0-7); HEMATOCRIT 39.7 % (36.0-48.0); HEMOGLOBIN 12.3 g/dL (12-16); IMMATURE GRANULOCYTES 0.3 % (0-5); MCH 26.9 pg (26.0-34.0); MCV 86.7 fL (80.0-100.0); MEAN PLATELET VOLUME 8.8 fL (7.4-10.4); MONOCYTES 9.2 % (2-11); NEUTROPHILS 76.8 % (40-80); PLATELET COUNT 240 10x3/uL (130-400); RBC 4.58 10x6/uL (4.00-5.40); RDW 13.6 % (11.5-14.5)
[2019-06-02 04:53] LABS: WBC 11.3 10x3/uL (4.8-10.8)
[2019-06-02 05:07] LABS: CALC OSMOLALITY 265 mosm/kg (275-300); CALCIUM 9.3 mg/dL (8.5-10.1); CARBON DIOXIDE 25.6 mmol/L (21.0-32.0); CHLORIDE - SERUM 97 mmol/L (98-107); CREATININE - SERUM 0.7 mg/dL (0.6-1.3); GLUCOSE 113 mg/dL (74-106); MAGNESIUM - SERUM 1.7 mg/dL (1.8-2.4); PHOSPHOROUS 4.3 mg/dL (2.5-4.9); POTASSIUM - SERUM 3.7 mmol/L (3.5-5.1); SODIUM 133 mmol/L (136-145); UREA NITROGEN 10 mg/dL (7-18); eGFR NON AFRICAN AMERICAN > 90 mL/min (90-120)
--- NOTE | 2019-06-02 07:48 | NUR ---
PT RESTING PEACEFULLY, DID NOT WAKE I ENTERED. BREATHS EVEN/REGULAR AND UNLABORED, NO SIGNS/SYMPTOMS OF ACUTE DISTRESS NOTED AT THIS TIME. CL IN REACH, SRX2.
[2019-06-02 08:16] VITALS: BP 151/87
[2019-06-02] MEDS ORDERED: METOPROLOL TART50 MG PO (11:05)
[2019-06-02 11:45] VITALS: BP 136/73
--- NOTE | 2019-06-02 11:59 | NUR ---
RX FOR NORVASC NOT TRANSMITTED ELECTRONICALLY. CALLED TO [facility], SPOKE WITH AIRAM, PHARMACIST.
--- NOTE | 2019-06-02 12:16 | MORECARE ---
CASE MANAGEMENT DISCHARGE SUMMARY PATIENT: GILBERTO BARRERA UNIT: [id number] ADM DATE: 05/31/19 AGE: 58 : 58 SEX: F ROOM/BED: D.2111 AUTHOR: FORD GAVIN PHYSICIAN: REFERRING PHYSICIAN: LIZ CHACON MD DATE OF SERVICE: 06/02/19 Discharge Plan Patient Name: GILBERTO BARRERA [facility] [facility] 1960 Planned Disposition: Home Anticipated Discharge Date: Discharge Date: Expected LOS: Initial Reviewer: [email or web address] Initial Review Date: 06/02/2019 Generated: 06/02/19 1:15 pm Comments DCP- Discharge Planning Updated by [email or web address]: Codie Bell on 06/02/19 11:[address] Patient Name: GILBERTO BARRERA Admission Status: ER Accout number: [id number] Admission Date: 05-31-2019 : 1960 Admission Diagnosis: Attending: INES, Current LOS: 2 Anticipated DC Date: Planned Disposition: Home Primary Insurance: [employer] ADV Discharge Planning Comments: CM MET WITH PATIENT ABOUT DC PLANNING/NEEDS. STATES PLAN FOR HOME, HAS CRUTCHES. CM WILL FOLLOW AND ASSIST. Manual Qa Tester: Codie Bell Coverage Notice Reviewer: [email or web address] Valente Rios Notice Issued Date-Time: 06/01/2019 16:40 Notice Type: Medicare Outpatient Observation Notice Notice Delivered To: Patient Relationship to Patient: Self Document Control Specialist Name: Delivery Method: HAND - Hand Delivered Carmen Days: Prior Verbal Notification: Recipient Understood Notice: Yes Recipient Signature: Yes Med Rec Note Co-signed by Attending: Coverage Notice Comment: Patient Name: GILBERTO BARRERA Page [id number] at 1216 All edits/amendments must be made on the electronic document DICTATION DATE: 06/02/19 1215 SUPERVISOR CUTTING AND BONING: CYNDI 06/02/19 1215 RPT#: [id number] DC DATE: STATUS: ADM IN [facility] [address] [place] [address] END OF REPORT
--- NOTE | 2019-06-02 13:33 | NUR ---
PT HAS BEEN SLEEPING, STATES SHE'S TOO TIRED TO DRIVE AT THIS TIME. WILL CONTINUE TO CHECK, MAY HAVE TO CALL SON TO GET A FRIEND TO ASSIST IN PICKING HER UP.
--- NOTE | 2019-06-02 15:24 | NUR ---
PT ESCORTED OUT VIA WHEELCHAIR TO [facility]. DAUGHTER DRIVING. CL IN REACH, SRX2.
--- NOTE | 2019-06-02 17:22 | MORECARE ---
CASE MANAGEMENT DISCHARGE SUMMARY PATIENT: GILBERTO BARRERA UNIT: [id number] ADM DATE: 05/31/19 AGE: 58 : 58 SEX: F ROOM/BED: D.2111 AUTHOR: FORD GAVIN PHYSICIAN: REFERRING PHYSICIAN: LIZ CHACON MD DATE OF SERVICE: 06/02/19 Discharge Plan Patient Name: GILBERTO BARRERA Facility: [facility]:[place] : 1960 Planned Disposition: Home Anticipated Discharge Date: Discharge Date: 06/02/2019 Expected LOS: Initial Reviewer: [id number] Initial Review Date: 06/02/2019 Generated: 06/02/19 6:22 pm Comments DCP- Discharge Planning Updated by [email or web address]: Codie Bell on 06/02/19 11:[address] Patient Name: GILBERTO BARRERA Admission Status: ER Accout number: [id number] Admission Date: 05-31-2019 : 1960 Admission Diagnosis: Attending: INES, Current LOS: 2 Anticipated DC Date: Planned Disposition: Home Primary Insurance: [employer] MEDICARE ADV Discharge Planning Comments: CM MET WITH PATIENT ABOUT DC PLANNING/NEEDS. STATES PLAN FOR HOME, HAS CRUTCHES. CM WILL FOLLOW AND ASSIST. 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
== END 2019-06-02 15:25 | disposition home or self-care (01) ==
LOC: D.ER 19:02 → D.M2 23:10 → OBSVTIME 23:10 → D.M2 06-02 15:25
PROVIDERS: Emergency Medicine; Family Medicine; ADMIT Family Medicine; ATTEND Family Medicine
DX: I16.0 Hypertensive urgency (principal); I24.8 Other forms of acute ischemic heart disease; I11.0 Hypertensive heart disease with heart failure; I50.30 Unspecified diastolic (congestive) heart failure; S93.401A Sprain of unspecified ligament of right ankle, initial encounter; W19.XXXA Unspecified fall, initial encounter; K21.9 Gastro-esophageal reflux disease without esophagitis; J45.909 Unspecified asthma, uncomplicated; M19.90 Unspecified osteoarthritis, unspecified site; F41.8 Other specified anxiety disorders; R07.9 Chest pain, unspecified; Z86.73 Personal history of transient ischemic attack (TIA), and cerebral infarction without residual deficits

== ENCOUNTER → 2019-07-12 13:21 | Outpatient (CLI) | payer MEDICARE, MEDICAID ==
[2019-06-01 03:37] VITALS: BMI 26.6
[~2019-07-12 13:21] MED LIST changes: +BUSPAR 15 MG TA15 MG PO; +CYCLOBENZAPRINE5 MG PO; +DICLOFENAC SODI50 MG PO; +METOPROLOL TART50 MG PO; +NORVASC5 MG PO; +ROBAXIN500 MG PO; +TORADOL10 MG PO
== END | disposition home or self-care (01) ==
LOC: D.US 10:30
PROVIDERS: ATTEND Internal Medicine Pulmonary Disease
DX: R60.0 Localized edema (principal)

== ENCOUNTER → 2020-05-20 09:07 | Outpatient (CLI) | payer MEDICARE, MEDICAID ==
[2019-06-01 03:37] VITALS: BMI 26.6
--- NOTE | ~2020-05-20 | EC ---
PATIENT:GILBERTO BARRERA DATE OF SERVICE: 05/20/20 SEX: F MEDICAL RECORD: [id number] DATE OF : 58 LOCATION[facility] AGE OF PATIENT: 59 ADMISSION DATE: 05/20/20 REFERRING PHYSICIAN: INTERPRETING PHYSICIAN: MARLENE LUI MD ECHOCARDIOGRAM REPORT ECHO CHARGES 4 ECHO COMPLETE Date: 05/20/20 CLINICAL DIAGNOSIS: HX OF HTN/COPD/TRICUSPID REGURG ECHOCARDIOGRAPHIC MEASUREMENTS (adult normal given) AC root (d.<3.7cm) 3.6 cm LV Septum d (<1.2 cm> 1.7 cm Valve Excursion 1.7 cm LV Septum (systole) 1.9 cm Left Atria (s.<4.0cm> 4.1 cm LVPW d(<1.2cm) 1.6 cm RV (d.<2.3cm) 3.4 cm LVPW (sytole) 2.0 cm LV diastole(<5.6CM) 4.3 cm MV E-F(>70mm/sec) cm LV systole 2.7 cm LVOT Diameter 1.9 cm MV exc.(>10mm) 1.5 cm Est.ejection fraction (50-75%) % DOPPLER: LVIT cm/sec A 84.0 cm/sec E 97.0 cm/sec LA cm/sec RVSP 48 mmHg LVOT 112 cm/sec AOP1/2T m/s Asc. Ao 145 cm/sec RVOT 62 cm/sec RA cm/sec PA 101 cm/sec AV Gradient Peak 8.46 mmHg AV Mean 4.00 mmHg AV Area 25.1 cm MV Gradient Peak 3.84 mmHg MV Mean 1.11 mmHg MV Area cm COMMENTS: Marine Pipe Welder: 2 NALDO AZAR Inspector Machine Cut Glass: 3 Dr. Pastrana TAPE# PACS Pericardial Effusion N DATE OF SERVICE: Adequate 2D, color flow imaging, spectral Doppler, and M-Mode. LVH is present. LV internal dimensions are normal. Wall motion is normal. EF is greater than or equal to 55%. Aortic valve is tricuspid. No evidence of stenosis by Doppler interrogation. Left atrium is upper limits of normal, mildly dilated at 4.1 cm. Mitral valve is thickened. Mild MR. Right-sided chambers are grossly normal. Mild TR. TRANSINT:[id number] Voice Confirmation ID: [id number] DOCUMENT ID: [id number] ECHOCARDIOGRAM REPORT [id number] GILBERTO BARRERA GREGORY A MD CC: [id number] DICTATION DATE: 05/20/20 1536 OIL AND GAS PRINCIPAL: 05/21/20 0025 DEP CLI 05/20/20 [place] [id number] [place] [id number]
== END | disposition home or self-care (01) ==
LOC: D.HCCECHO 09:07
PROVIDERS: ATTEND Internal Medicine Interventional Cardiology
DX: I10 Essential (primary) hypertension (principal)